=== PATIENT | female | born 1995 | race Caucasian/White ===

== ENCOUNTER 2023-08-11 12:09 | Outpatient (CLI) | payer BC, SELFPAY ==
[2023-08-11 13:45] LABS: Basophils Percent Auto 0.1 % (0.2-1.2); Eosinophils Absolute Auto 0.2 K/mm3 (0-0.3); Eosinophils Percent Auto 3.3 % (0-4.4); Hematocrit 39.8 % (37.0-47.0); Hemoglobin 13.4 g/dL (12.0-15.0); Immature Granulocyte Absolute 0.01 K/mm3 (0.00-0.031); Immature Granulocyte Percent A 0.1 % (0-0.5); Lymphocytes Absolute Auto 2.49 K/mm3 (0.9-3.2); Lymphocytes Percent Auto 35.2 % (18.3-44.2); Mean Corpuscular HGB Conc 33.7 g/dl (32-36); Mean Corpuscular Hemoglobin 30.9 pg (26-34); Mean Corpuscular Volume 91.9 fl (80-100); Mean Platelet Volume 9.7 fl (7.4-10.4); Monocytes Absolute Auto 0.4 K/mm3 (0.1-0.6); Monocytes Percent Auto 5.9 % (2.6-8.5); Neutrophils Absolute Auto 3.9 K/mm3 (1.3-6.7); Neutrophils Percent Auto 55.4 % (45.5-73.1); Platelet Count Result 329 k/mm3 (150-375); Red Blood Count 4.33 M/mm3 (4.2-5.4); Red Cell Distribution Width 12.2 % (11.5-14.5); White Blood Count 7.1 K/mm3 (4.5-10.0)
== END 2023-08-11 12:10 | disposition home or self-care (01) ==
LOC: ANHSURGERY 12:16
PROVIDERS: Visit Provider Obstetrics & Gynecology
DX: Z01.818 Encounter for other preprocedural examination (principal); R10.2 Pelvic and perineal pain; N92.1 Excessive and frequent menstruation with irregular cycle
CPT/HCPCS: 36415; 85025; 86850; 86900; 86901

== ENCOUNTER 2023-08-15 00:20 | Day surgery (SDC) | payer BC, SELFPAY ==
[2023-08-06 16:28] VITALS: BMI 37.9
--- NOTE | 2023-08-06 16:45 | SUR.PREOP ---
Report to the Outpatient Waiting Room, entrance under the green pavilion located off [facility], at time 7:30p.m. on date 08/15/2023. Planned Procedure Time: 9:30p.m.. Time changes happen often and if your time is changed the preop area will call you the afternoon before. - You and your visitor will be asked to self-screen and do not enter if you have any COVID symptoms. - A mask is optional within the hospital at this time. Patients may have clear liquids (water, carbonated beverages, clear teas, apple juice) until 3 hours prior to surgery with a maximum of 20 ounces. - No food from midnight until time of surgery - Infants may have breast milk until 4 hours before surgery, formula 6 hours prior to surgery. - Children will be allowed to drink immediately following surgery. If applicable, please bring a bottle or sippy cup to assist with drinking. Juice, water, soda, and popsicles are readily available. For infants on formula, please bring formula the day of surgery. Pacifiers are allowed. Take the following medications with a SIP of water the morning of surgery: N/A (takes all of her meds at bedtime) DO NOT STOP ANY OF YOUR OTHER PRESCRIPTION MEDICATIONS PRIOR TO SURGERY ?EXCEPT THE FOLLOWING Medications to discontinue per physician N/A Date to take last dose N/A Please no make-up, nail japanese, hairspray, perfume, deodorant, or body powder the day of surgery. No jewelry (including any body piercings) or valuables the day of surgery, leave them at home. Please take a shower or bath the night before, or the morning of, surgery with an antibacterial soap. Wear comfortable, loose fitting clothing. Children are encouraged to wear pajamas. - Jewelry must be removed prior to entering the operating room. Rings and piercings that are not removed may be cut off. - The hospital will not accept responsibility for valuables. - Please leave all valuables, including medications, at home the day of surgery. If you are going home after surgery, a licensed delivery truck driver must drive you home. - NO public transportation without another adult if you receive anesthesia. - We recommend that an adult stay with you for 24 hours following discharge. - We also recommend that you do not drive, make important decision, drink alcoholic beverages, or take any drugs that were not prescribed by your health care provider for at least 24 hours after your discharge time. For Pediatric surgeries, we recommend two adults accompany the child home. Follow any additional instructions given to you from your surgeon. If you or anyone in your household have experienced Covid symptoms in the past week, please notify your surgeon or the nurse liaison at the phone number below for possible testing. Telephone instructions given to Jamir Raygoza and asked if any additional questions and then verbalized understanding. Patient advised to call surgeon office or pre surgery nurse liaison [phone] if any additional questions.
--- NOTE | 2023-08-12 12:37 | P.HP_ITS ---
H&P: HPI History of Present Illness Date/Time: 08/12/23 12:37 Chief Complaint: Pelvic pain with excessive bleeding refractory medical therapy Narrative: 28-year-old G 6 P2 admitted for robotic total vaginal hysterectomy and bilateral salpingectomy secondary to pain bleeding and dyspareunia which has been refractory to medical therapy. She has tried multiple medical modalities been unsuccessful in controlling this discomfort. She understands this to be of complete the permanent and irreversible procedure her with no ability to have children following this. Risks and benefits reviewed including but not ex clusive of , aspiration weighted bleeding, transfusion, perforation injury to bowel, bladder, ureters, or other internal organs with the need for open laparotomy. She received the [employer] handout entitled hysterectomy as well as de Tobias handout. She had all questions answered. She asked proceeded [facility] Social History Social History Smoking status: Current every day smoker Tobacco type: e-cigarettes/vaping Alcohol intake: current Drinks per week: 1 Alcohol use details: very rare, yet drinks ocassionaly Living arrangements: with family Meds Home Medications and Allergies Home Medications Medication Instructions Recorded Confirmed Type Benadryl 50 mg PO DAILY 08/06/23 08/06/23 History cetirizine 10 mg tablet 10 mg PO DAILY 08/06/23 08/06/23 History cimetidine 200 mg PO DAILY 08/06/23 08/06/23 History drospirenone 3 mg-ethinyl 1 tablet PO DAILY 08/06/23 08/06/23 History estradiol 0.02 mg tablet (Lo-Zumandimine (28)) montelukast 10 mg tablet 10 mg PO DAILY 08/06/23 08/06/23 History naproxen 500 mg tablet 500 mg PO PRN PRN Pain 08/06/23 08/06/23 History phentermine 37.5 mg tablet 37.5 mg PO TID 08/06/23 08/06/23 History spironolactone 100 mg tablet 100 mg PO DAILY 08/06/23 08/06/23 History valacyclovir 1 gram tablet 1,000 mg PO DAILY 08/06/23 08/06/23 History Allergies Allergy/AdvReac Type Severity Reaction Status Date / Time nickel Allergy Hives Verified 08/06/23 16:17 Exam Const: General: cooperative, healthy appearing and comfortable Nutritional Appearance: overweight Orientation/consciousness: oriented to person, oriented to place and oriented to time HENMT: Head: normal to inspection Resp: Effort & Inspection: normal respiratory effort Cardio: Rate: regular rate Rhythm: regular rhythm Heart sounds: S1 normal heart sound present and S2 normal heart sound present GI: Inspection: normal to inspection : External Female Exam: normal external appearance Speculum Exam - Vagina: normal appearance of the vagina Speculum Exam - Cervix: normal appearance of the cervix (Second-degree prolapse) Bimanual exam- vagina & uterus: enlarged and Uterine tenderness Bimanual Exam- Adnexa, other: normal adnexae Assessment and Plan Assessment and plan (1) Pelvic pain: Code(s): R10.2 - Pelvic and perineal pain Status: Acute (2) Excessive bleeding: Code(s): R58 - Hemorrhage, not elsewhere classified Status: Acute Assessment and Plan: Robotic total vaginal hysterectomy bilateral salpingectomy
[2023-08-15] VITALS (11 sets, daily range): BP systolic 101–123; BP diastolic 64–90; PULSE 64–99; RESP 14–18; TEMP 36.2–36.8; O2SAT 98–100; BMI 37.4
--- NOTE | 2023-08-15 05:42 | WPDHPUPDATE1 ---
History and Physical Update Update Date/Time: 08/15/23 05:42 History and Physical has been reviewed, including an updated exam of the patient. There are NO changes in the patient's condition. Risks, benefits, and alternatives have been discussed and questions answered. Patient agrees to proceed with procedure.
--- NOTE | 2023-08-15 08:19 | WPDANESEPPF ---
Anes - Initial Pre Proc Eval Procedure: Operation Date: 08/15/23 09:30 Proposed Procedures p Robotic Assisted Total Vaginal Hysterectomy with Bilateral Salpingectomy - Lopez Matute MD Date/Time: 08/15/23 08:19 Surgeon: Lopez Matute MD Pre Op Diagnosis: Pelvic Pain, Irrg Excessive Bleeding Patient Data Age: 28 Gender: F Height: 1.65 m Weight: 103.42 kg Allergies Allergy/AdvReac Type Severity Reaction Status Date / Time nickel Allergy Hives Verified 08/06/23 16:17 Home Medications Medication Instructions Recorded Confirmed Type Benadryl 50 mg PO DAILY 08/06/23 08/06/23 History cetirizine 10 mg tablet 10 mg PO DAILY 08/06/23 08/06/23 History cimetidine 200 mg PO DAILY 08/06/23 08/06/23 History drospirenone 3 mg-ethinyl 1 tablet PO DAILY 08/06/23 08/06/23 History estradiol 0.02 mg tablet (Lo-Zumandimine (28)) montelukast 10 mg tablet 10 mg PO DAILY 08/06/23 08/06/23 History naproxen 500 mg tablet 500 mg PO PRN PRN Pain 08/06/23 08/06/23 History phentermine 37.5 mg tablet 37.5 mg PO TID 08/06/23 08/06/23 History spironolactone 100 mg tablet 100 mg PO DAILY 08/06/23 08/06/23 History valacyclovir 1 gram tablet 1,000 mg PO DAILY 08/06/23 08/06/23 History hydrocodone 5 mg-acetaminophen 325 1 tablet PO Q4H PRN pain #20 tabs 08/15/23 Rx mg tablet Patient hx anesthesia problems: none Family hx anesthesia problems: none Results Review: All pre-operative results and documents have been reviewed as part of the pre-operative evaluation. [facility] Social History Social History Smoking status: Current every day smoker Tobacco type: e-cigarettes/vaping Alcohol intake: current Drinks per week: 1 Alcohol use details: very rare, yet drinks ocassionaly Living arrangements: with family Anes - Eval Final PreProcedure Day of Procedure 06/21/24 08:19 Patient weight: obese Heart: regular rate and rhythm Lungs: clear to auscultation Airway: Mallampati scale class II Neurological: alert and oriented Last oral intake: >/= 8 hours ASA classification: II Emergent: no Anesthetic plan: proceed Anesthesia type and monitoring: general ETT and standard monitoring Results Review: All pre-operative results and documents have been reviewed as part of the pre-operative evaluation. Pt vapes daily, most recently at 7 am today. Informed Consent: The patient's anesthetic plan and its attendant risks and benefits were discussed with the patient/family/POA. Questions were solicited and answers provided to the satisfaction of the patient/family/POA.
[2023-08-15] MEDS: ACETAMINOPHEN 500 MG TABLET 1000 MG PO (08:38)
[2023-08-15] MEDS: LACTATED RINGERS 1,000 ML 30 ML IV CONT ×2 (09:12→10:40)
[2023-08-15] MEDS: KETOROLAC 15 MG/ML VIAL (*BKC) IV PUSH (09:15)
[2023-08-15] MEDS: ceFAZolin 2 GM/D5W 50 ML 2 GM/50 ML BAG IVPB (09:22)
--- NOTE | 2023-08-15 10:24 | W.PM.PROC2 ---
Procedure Note - Detailed Date of Procedure 08/15/23 Pre-op Diagnosis Pelvic Pain, Irrg Excessive Bleeding Post-op Diagnosis Same Procedure Performed Robotic total vaginal hysterectomy bilateral salpingectomy with extensive lysis of adhesions Surgeon Lopez Matute MD Anesthesia General Indications 28 female pelvic pain bleeding and dyspareunia Findings multiple adhesions from omentum the anterior. Enlarged uterus. Normal-appearingTubes ovaries. Description of Procedure patient was prepped draped in sterile fashion placed in dorsal lithotomy position. Excellent anesthesia weighted speculum placed posterior fornix vagina. Lip of the cervix grasped with single-tooth uterus sounded to 9cm. Serial dilatation with fragmented passage of the number 8 ADRI and the 2. 0.5 cold cup. Next the 16 Occitan catheter was placed in the bladder to drain clear urine. The weighted speculum was removed and the gloves were changed. A supraumbilical incision made the Veress needle passed in the abdomen. Abdomen filled with CO2 gas [id number]. The 8mm trocar advanced in the abdomen. Downside visualized no injury seen. Patient placed in 18? Trendelenburg and right left lateral quadrant incisions made. 8Mm trocars advanced under direct visualization assuring no injury. Right upper quadrant incision made and the 8mm trocar advanced under direct visualization again assuring no injury. The robot was docked. Attention was turned to the hysterectomy at the console. There was multiple adhesions from the omentum to the anterior abdominal wall using sharp dissection with monopolar cautery and bipolar occasional bipolar this was sharply dissected till the uterus ovaries and tubes could clearly be seen. The left round ligament was grasped, burned, cut. Anterior bladder flap formed by sharply dissecting the peritoneum bringing this across the peritoneum and reflecting the bladder caudally to the opposite round ligament was clamped, burned, cut. Next the left fallopian tube was sharply dissected away from the ovarian complex by monopolar cautery and left attached to each uterine origin. In similar fashion to remove the right fallopian tube, the tube was sharply dissected away from the ovary and left attached to its uterine origin. Next the left utero-ovarian ligament was skeletonized to conserve the left ovary this was clamped, burned, cut and brought to level of the previously cut round ligament. Similarly on the right. The utero-ovarian ligament was skeletonized to conserve the right ovary. This was clamped, burned, cut and brought to the level the previously cut round ligament. The cardinal broad ligaments on the left were then serially skeletonized clamping burning cutting and bringing this down lateral edge of the uterus and cervix until the large tortuous blood vessels could be seen on the left these were individually clamped, burned, cut. In similar fashion on the right the cardinal broad ligaments were skeletonized clamping burning cutting and grainy sound the lateral edge until the uterine vessels could be seen on the right. These were individually clamped, burned, cut. Blanching the uterus was noted a colpotomy incision was made. Uterus cervix and tubes removed through the vagina. The vagina was then closed with continuous running 0V lock from lateral edge to lateral edge back to the midline. Irrigation undertaken to clear hemostasis was assured. The robot was undocked. The gas removed from the abdomen. The trocars removed. The incisions closed with 4-0 Monocryl and glue. The instruments removed from the vagina the patient went to recovery in satisfactory condition. All sponge, needle, instrument counts were correct. There were no immediate complications noted the Estimated Blood Loss 25 Drains No Packing No Pathology Yes Complications No immediate complications Condition Stable Disposition PACU
--- NOTE | 2023-08-15 10:29 | PM.DS ---
DS: Admitting Diagnosis Discharge Date Admitting Diagnosis excessive bleeding pelvic pain DS: Discharge Diagnosis Discharge Diagnosis (1) Excessive bleeding: Code(s): R58 - Hemorrhage, not elsewhere classified Status: Acute (2) Pelvic pain: Code(s): R10.2 - Pelvic and perineal pain Status: Acute DS: Summary Hospital Course Reason for hospitalization: patient was admitted on 08/15/2019 robotic total hysterectomy salpingectomy. She also had extensive lysis of adhesions. Hospital Course: Patient's hospital course unremarkable appearance remained afebrile. She was up, eating regular ambulating without difficulty, and generally without complaints. Time Spent with Patient Time attestation: Total time spent providing and/or coordinating discharge services: Exam Const: General: cooperative, healthy appearing and comfortable Nutritional Appearance: average body habitus Orientation/consciousness: oriented to person, oriented to place and oriented to time HENMT: Head: normal to inspection Resp: Effort & Inspection: normal respiratory effort Cardio: Rate: regular rate Rhythm: regular rhythm Heart sounds: S1 normal heart sound present and S2 normal heart sound present GI: Inspection: normal to inspection and incision ( Wounds are clean dry and intact) DS: Data Data Completed and Pending Pending studies at discharge: Pending at discharge 08/15/23 10:15 Surgical [PTH] Routine Discharge Plan Discharge Patient Disposition: Home, Self-Care Stand Alone Forms: General Discharge Instructions Follow-up/Referrals: Lopez Hartley MD [Physician] - Discharge Medications: New hydrocodone-acetaminophen 5-325 mg tablet 1 tablet PO Q4H PRN (Reason: pain) Qty: 20 0RF No Action cetirizine 10 mg tablet 10 mg PO DAILY valacyclovir 1 gram tablet 1,000 mg PO DAILY MDD 3 Patient Comments: Takes 1gram daily for prevention and 3g daily for when fever blister breaks out. spironolactone 100 mg tablet 100 mg PO DAILY phentermine 37.5 mg tablet 37.5 mg PO TID Patient Comments: Patient takes one daily or up to three times daily. montelukast 10 mg tablet 10 mg PO DAILY naproxen 500 mg tablet 500 mg PO PRN PRN (Reason: Pain) drospirenone-ethinyl estradiol [Lo-Zumandimine (28)] 3-0.02 mg tablet 1 tablet PO DAILY Rx Instructions: 3-0.02mg cimetidine 200 mg PO DAILY Benadryl 50 mg PO DAILY
[2023-08-15] MEDS: fentaNYL CITRATE INJ (*CRX) 100 MCG/2 ML VIAL 25 MCG IV PUSH ×4 (10:56→11:42)
[2023-08-15] MEDS: ONDANSETRON INJ 4 MG/2 ML VIAL IV PUSH (11:13)
[2023-08-15] MEDS: oxyCODONE HCL (*CRX) 5 MG TAB IR PO (11:47)
[2023-08-15] MEDS: KETOROLAC 30 MG/ML VIAL (*BKC) IV PUSH ×2 (13:18→19:13)
[2023-08-15] MEDS: SIMETHICONE 80 MG TAB.CHEW PO ×2 (13:19→16:44)
[2023-08-15] MEDS: DEXTROSE 5%/LACTATED RINGERS 1,000 ML 125 ML IV CONT (13:20)
[2023-08-15] MEDS: HYDROcodone/acetaminophen (*CRX) 10-325 MG TABLET 1 TAB PO ×2 (15:35→19:13)
[2023-08-15] MEDS: DOCUSATE SODIUM 100 MG CAPSULE PO (16:45)
--- NOTE | 2023-08-15 18:53 | PC.NURSE ---
1207-This patient, Jamir Raygoza, was admitted to OB 2nd Floor Room 288-00. Patient/family oriented to hospital policies and general routines including ID bracelet, bed and alarms, visiting hours, pain management, procedures, bathroom and other care routines, personal items, smoking policy, room service/diet, and visiting hours. Information on how to activate the Rapid Response Team has been discussed. Patient/Family are encouraged to report perceived risks to care and to ask questions if they do not understand what they are told or what they should do.
[2023-08-16] MEDS: KETOROLAC 30 MG/ML VIAL (*BKC) IV PUSH (00:42)
[2023-08-16] MEDS: HYDROcodone/acetaminophen (*CRX) 10-325 MG TABLET 1 TAB PO ×3 (00:42→11:49)
[2023-08-16 01:22] VITALS: BP 104/69; PULSE 71; RESP 16; TEMP 36.9
[2023-08-16 03:36] VITALS: BP 100/62; PULSE 83; RESP 18; TEMP 36.8; O2SAT 99
[2023-08-16 04:51] LABS: Basophils Percent Auto 0.2 % (0.2-1.2); Hematocrit 39.8 % (37.0-47.0); Hemoglobin 13.1 g/dL (12.0-15.0); Immature Granulocyte Absolute 0.04 K/mm3 (0.00-0.031); Immature Granulocyte Percent A 0.4 % (0-0.5); Lymphocytes Absolute Auto 2.19 K/mm3 (0.9-3.2); Mean Corpuscular HGB Conc 32.9 g/dl (32-36); Mean Corpuscular Hemoglobin 30.8 pg (26-34); Mean Corpuscular Volume 93.6 fl (80-100); Mean Platelet Volume 10.1 fl (7.4-10.4); Monocytes Absolute Auto 0.9 K/mm3 (0.1-0.6); Monocytes Percent Auto 8.1 % (2.6-8.5); Neutrophils Absolute Auto 7.8 K/mm3 (1.3-6.7); Neutrophils Percent Auto 71.3 % (45.5-73.1); Platelet Count Result 300 k/mm3 (150-375); Red Blood Count 4.25 M/mm3 (4.2-5.4); Red Cell Distribution Width 12.1 % (11.5-14.5)
--- NOTE | 2023-08-16 08:30 | PC.NURSE ---
PT introductions made and plan of care discussed per post op mural artist surgery, pain management and daily care activities. PT verbalized understanding of such care and was the only recipient of such instructions. No barriers to learning identified at this time. PT received such instructions via one to one discussion and demonstrations.
[2023-08-16 08:42] VITALS: BP 106/68; PULSE 82; RESP 18; TEMP 36.3; O2SAT 100
[2023-08-16] MEDS: DOCUSATE SODIUM 100 MG CAPSULE PO (08:42)
[2023-08-16] MEDS: IBUPROFEN 600 MG TABLET PO (08:42)
[2023-08-16] MEDS: SIMETHICONE 80 MG TAB.CHEW PO ×2 (08:43→11:49)
[2023-08-16] MEDS: ENOXAPARIN 40 MG/0.4 ML SYRINGE SUB-Q (08:44)
--- NOTE | 2023-08-16 08:57 | PM.GYNPNOP ---
MACHINE TENDER - A/P Postoperative Procedures: Procedures Operation Date: 08/15/23 09:30 Actual Procedure Side Surgeon p Robotic Assisted Total Vaginal Hysterectomy with Bilateral Salpingectomy, Lysis of Adhesions Lopez Matute MD Postoperative day: 1 Postoperative status: doing well Postoperative plan: routine post-op care and discharge Time Spent With Patient Time: Total time spent is greater than 50% in coordination of care (as documented) at patient's floor/unit and/or counseling patient: Time with patient: less than 15 minutes MACHINE TENDER- PN:Subj Post-Op Subjective Date/time seen: 08/16/23 08:57 Subjective: patient has no complaints, pain is well controlled and patient is tolerating oral intake Exam Narrative: inc c/d/i abdomen soft, nd, nt MACHINE TENDER - PN: Obj Data Vital Signs Vital Signs: Vital Signs - 24 hr 08/15/23 10:40 08/15/23 10:45 08/15/23 10:50 Temperature 97.1 F L Pulse Rate 99 81 Respiratory Rate 18 15 Blood Pressure 108/75 118/90 Pulse Oximetry 100 100 100 Oxygen Delivery Simple Face Mask Simple Face Mask Room Air Oxygen Flow Rate 8 8 08/15/23 11:00 08/15/23 11:15 08/15/23 11:30 Temperature Pulse Rate 80 69 64 Respiratory Rate 15 16 16 Blood Pressure 112/78 110/69 107/69 Pulse Oximetry 100 100 98 Oxygen Delivery Room Air Room Air Room Air Oxygen Flow Rate 08/15/23 11:45 08/15/23 12:15 08/15/23 13:00 Temperature 97.7 F Pulse Rate 78 70 70 Respiratory Rate 17 16 16 Blood Pressure 107/67 106/67 Pulse Oximetry 100 100 100 Oxygen Delivery Room Air Room Air Oxygen Flow Rate 08/15/23 19:21 08/16/23 01:22 08/16/23 03:36 Temperature 98.2 F 98.4 F 98.2 F Pulse Rate 68 71 83 Respiratory Rate 16 16 18 Blood Pressure 101/64 104/69 100/62 Pulse Oximetry 99 Oxygen Delivery Oxygen Flow Rate Intake/Output Intake/Output: Intake & Output 08/13/23 08/14/23 08/15/23 08/16/23 23:59 23:59 23:59 23:59 Intake Total 2408.3 Output Total 2140 Balance 268.3 Meds/Results Medications: Active Medications Generic Name Dose Route Start Last Admin Trade Name Freq PRN Reason Stop Dose Admin Hydrocodone Bitart/Acetaminophen 1 tab 08/15/23 12:01 Hydrocodone/Acetaminophen (*Crx) 5-325 Mg Tablet PO Q3H PRN Pain Rated 5 or Less Hydrocodone Bitart/Acetaminophen 1 tab 08/15/23 12:01 08/16/23 08:43 Hydrocodone/Acetaminophen (*Crx) 10-325 Mg Tablet PO 1 tab Q3H PRN Administration Pain Rated 6 or Greater Docusate Sodium 100 mg 08/15/23 17:00 08/16/23 08:42 Docusate Sodium 100 Mg Capsule PO 100 mg BID VEENA Administration Enoxaparin Sodium 40 mg 08/16/23 09:00 08/16/23 08:44 Enoxaparin 40 Mg/0.4 Ml Syringe SUB-Q 40 mg DAILY VEENA Administration Ibuprofen 600 mg 08/15/23 12:01 08/16/23 08:42 Ibuprofen 600 Mg Tablet PO 600 mg Q6H PRN Administration Cramping Ketorolac Tromethamine 30 mg 08/15/23 12:01 08/16/23 00:42 Ketorolac 30 Mg/Ml Vial (*Bkc) IV PUSH 08/20/23 12:00 30 mg Q6H PRN Administration Pain Rated 4-6 Naloxone HCl 0.1 mg 08/15/23 12:01 Naloxone Hcl 0.4 Mg/Ml Vial IV PUSH Q2M PRN Respiratory rate less than 10 Ondansetron HCl 4 mg 08/15/23 12:01 Ondansetron Inj 4 Mg/2 Ml Vial IV PUSH Q6H PRN Nausea And Vomiting Simethicone 80 mg 08/15/23 12:01 08/16/23 08:43 Simethicone 80 Mg Tab.Chew PO 80 mg TIDWM VEENA Administration Labs 08/16/23 03:33 Labs: Laboratory Results - last 24 hr 08/16/23 03:33 WBC 11.0 H RBC 4.25 Hgb 13.1 Hct 39.8 MCV 93.6 MCH 30.8 MCHC 32.9 RDW 12.1 Plt Count 300 MPV 10.1 Immature Gran % (Auto) 0.4 Neut % (Auto) 71.3 Lymph % (Auto) 20.0 Parmer % (Auto) 8.1 Eos % (Auto) 0.0 Baso % (Auto) 0.2 Lymph # (Auto) 2.19 Parmer # (Auto) 0.9 H Eos # (Auto) 0.0 Baso # (Auto) 0.0 Abs Immat Gran (auto) 0.04 H Absolute Neuts (auto) 7.8 H Absolute Nucleated RBC
[2023-08-16] MEDS: ONDANSETRON HCL ODT 4 MG TABLET PO (10:34)
--- NOTE | 2023-08-16 11:52 | PC.NURSE ---
PT discharged to home via wheelchair accompanied by family and taken to waiting car. Follow up appts confirmed
== END 2023-08-16 11:52 | disposition home or self-care (01) ==
LOC: ANHSURGERY 07:17 → ANHOB2 12:03
PROVIDERS: Visit Provider Obstetrics & Gynecology
PROC: (CPT 58552; principal; 2023-08-15 09:30)
DX: N88.8 Other specified noninflammatory disorders of cervix uteri (principal); N80.03 Adenomyosis of the uterus; N73.6 Female pelvic peritoneal adhesions (postinfective); E66.9 Obesity, unspecified; Z68.37 Body mass index [BMI] 37.0-37.9, adult; F17.290 Nicotine dependence, other tobacco product, uncomplicated; Z79.1 Long term (current) use of non-steroidal anti-inflammatories (NSAID); Z79.891 Long term (current) use of opiate analgesic
CPT/HCPCS: 58552; S2900; 36415; 85025; 88307; 99199; A9270; J0690; J1100; J1170; J1650; J1885; J2250; J2405; J2704; J3010; J7030; J7120; J7121

== ENCOUNTER 2023-11-19 10:43 | Outpatient (CLI) | payer BC, SELFPAY ==
--- NOTE | ~2023-11-19 | MR_ITS ---
MRI of the brain Clinical History: Chronic migraine Technique: Axial and sagittal T1-weighted images were acquired. These were followed by axial T2-weigh gely, diffusion weighted, gradient, and FLAIR images. Following intravenous administration of 20 cc Mu ltiHance gadolinium, T1-weighted fat-sat imaging was performed in the axial and sagittal planes. Findings: No abnormal signal seen in the brain parenchyma. No acute infarct, intracranial hemorrhage, or mass lesion. Ventricles and subarachnoid spaces are unremarkable. Orbits are unremarkable. Paranasal sinuses and m astoid are clear. Major intracranial flow voids are intact. Sagittal midline structures are intact. No abnormal postcontrast enhancement identified. IMPRESSION: Normal exam. Reviewed, dictated and finalized at location M. IMPRESSION: Normal exam.
== END 2023-11-19 10:44 | disposition home or self-care (01) ==
LOC: MICIMG 10:44
PROVIDERS: Visit Provider Psychiatry & Neurology Neurology
DX: G43.E09 Chronic migraine with aura, not intractable, without status migrainosus (principal)
CPT/HCPCS: 70553; A9577